=== PATIENT | female | born 1940 | race Caucasian/White ===

== ENCOUNTER 2016-05-07 14:43 | Emergency (ER) | payer MEDICARE ==
[2016-05-07 15:27] VITALS: BP 124/56
--- NOTE | 2016-05-07 15:55 | UC ---
Respiratory Complaint HPI - HPI Summary HPI Summary: cough and feeling crappy x 4 days. Feels like she has a cold and that she and her are passing it back and forth. States her cleaning lady brought her mother in law and that woman was sick too. Pt is a smoker. Had a flu shot. Has had pneumonia a few times in the past. - History of Current Complaint Chief Complaint: UCGeneralIllness Stated Complaint: COLD/ACHY ALL OVER Time Seen by Provider: 05/07/16 15:44 Hx Obtained From: Patient Onset/Duration: Gradual Onset, Lasting Days, Still Present Timing: Constant Severity Initially: Moderate Severity Currently: Moderate Pain Intensity: 10 - in her lower back, "sciatica, no different than usual" Pain Scale Used: 0-10 Numeric Character: Sputum Description: - yellow Aggravating Factors: Nothing Alleviating Factors: OTC Meds - cough drops Associated Signs And Symptoms: Positive: Wheezing, Dizziness, URI, Nasal Congestion, Sinus Discomfort. Negative: Fever, Chills, Pleuritic Chest Pain - Risk Factors Pulmonary Embolism Risk Factors: Negative Cardiac Risk Factors: Negative Pseudomonas Risk Factors: Chronic Lung Disease Tuberculosis Risk Factors: Negative - Allergies/Home Medications Allergies/Adverse Reactions: Allergies Allergy/AdvReac Type Severity Reaction Status Date / Time Cefaclor [From Ceclor] Allergy Rash Verified 05/07/16 15:27 Cephalexin [From Keflex] Allergy Unknown Verified 05/07/16 15:27 Reaction Details Cimetidine [From Tagamet HB] Allergy ITCHY Verified 05/07/16 15:27 RASH, N/V Erythromycin Allergy Rash Verified 05/07/16 15:27 Lansoprazole [From Prevacid] Allergy Unknown Verified 05/07/16 15:27 Reaction Details Morphine Allergy Unknown Verified 05/07/16 15:27 Reaction Details [place] Allergy WATERY Verified 05/07/16 15:27 EYES HIVES, SOB Prednisone Allergy Unknown Verified 05/07/16 15:27 Reaction Details Sulfa Drugs Allergy Rash Verified 05/07/16 15:27 Tetracycline Allergy Rash Verified 05/07/16 15:27 PMH/Surg Hx/FS Hx/Imm Hx Previously Healthy: No - sciatica Respiratory History Of: Reports: COPD Neurological History Of: Reports: Migraine - MANY YEARS AGO Psychological History Of: Reports: Anxiety - ON MEDS, Depression - ON MEDS Cancer History Of: Denies: Breast Cancer - Surgical History Surgical History: Yes Surgery Procedure, Year, and Place: OPEN BIOPSY RIGHT BREAST[place] [place];2003;02/2012 ALSO. HYSTERECTOMY, [facility] [place], . LEFT ELBOW, 2008, [facility] [place]. GALLBLADDER, , [facility] [place]. TUBAL LIGATION , [facility] [place]. R BREAST SX-LESION REMOVED--MAR 29, 2012. HEART CATH, , [facility] [place] - Family History Known Family History: Positive: Other - cancer - Social History Occupation: Retired Lives: With Family Alcohol Use: Rare Substance Use Type: None, Prescribed Smoking Status (MU): Heavy Every Day Tobacco Smoker Type: Cigarettes Amount Used/How Often: 1 PPD FOR ABOUT 45 YEARS Have You Smoked in the Last Year: Yes Review of Systems Constitutional: Fatigue ENT: Sore Throat, Nasal Discharge Respiratory: Cough Cardiovascular: Negative Gastrointestinal: Negative Motor: Weakness Neurovascular: Other Musculoskeletal: Arthralgia - sciatica Neurological: Headache All Other Systems Reviewed And Are Negative: Yes Physical Exam Triage Information Reviewed: Yes Appearance: No Pain Distress, Well-Nourished, Ill-Appearing, Other: - odor sim to cigarette smoke from patient; relates dizziness when she stands up. RN reported that pt "almost passed out" coming to triage room. Vital Signs: Initial Vital Signs Temp 97.3 F 05/07/16 15:23 Pulse 91 05/07/16 15:23 Resp 18 05/07/16 15:23 BP 124/56 05/07/16 15:23 Pulse Ox 95 05/07/16 15:23 Vital Signs Reviewed: Yes Eyes: Positive: Conjunctiva Clear ENT: Positive: Pharynx normal, TMs normal Neck: Positive: Supple, Nontender, No Lymphadenopathy Respiratory: Positive: No respiratory distress, No accessory muscle use, Decreased breath sounds, Wheezing - right upper lobe only Cardiovascular: Positive: RRR, No Murmur, Pulses Normal, Brisk Capillary Refill Abdomen Description: Positive: Nontender, Soft Musculoskeletal: Positive: Strength Intact, ROM Intact Neurological: Positive: Alert, Muscle Tone Normal Psychological Exam: Normal Skin Exam: Normal UC Diagnostic Evaluation - Laboratory O2 Sat by Pulse Oximetry: 95 Respiratory Course/Dx - Course Course Of Treatment: EKG SR nl AVIVCT, no acute changes, NONSTEMI, no change compared to 12/16/07. With pt's wheezing in one lobe of the lung and inability to stand or sit up without dizziness am concerned about pneumonia, dehydration, possible cardiac symptoms. Recommend transfer to ED, pt and [facility]. will drive pt. - Differential Dx/Diagnosis Differential Diagnosis/HQI/PQRI: Bronchitis, Exacerbation Of COPD, Influenza, Lower Resp Infection Provider Diagnoses: wheezing. vertigo - Physician Notification/Consults Time Discussed With Above Provider: 16:10 - Dr. Rodríguez, [facility] ED Instructed by Provider To: MD Will See In ED Discharge - Discharge Plan Condition: Stable Disposition: AGAINST MEDICAL ADVICE Discharge Disposition Comment: Pt will go by private car to [facility] with driving
== END 2016-05-07 16:20 | disposition left against medical advice (07) ==
LOC: UCCORT 14:43
DX: R06.2 Wheezing (principal); R42 Dizziness and giddiness; Z88.1 Allergy status to other antibiotic agents; Z88.5 Allergy status to narcotic agent; Z88.2 Allergy status to sulfonamides; Z88.8 Allergy status to other drugs, medicaments and biological substances; F17.210 Nicotine dependence, cigarettes, uncomplicated
CPT/HCPCS: 93005; 99212; G0463

== ENCOUNTER 2018-07-31 09:34 | Emergency (ER) | payer MEDICARE ==
[2018-07-31 11:03] VITALS: BP 151/64
--- NOTE | 2018-07-31 11:30 | UC ---
General HPI - HPI Summary HPI Summary: Here with her who has dementia, she has to take care of him. States she has been coughing with SOB, productive cough. Just finished a zpack a few days ago. No fever. +Congestion. +Seasonal allergies. Good PO. Some weight loss. No N/V/D. Blood pressure has been high, states her primary has been watching it. Her nerves are high because she has to take care of her . Is taking Albuterol. Refused oral prednisone because she states it makes her a 'bitch' when they tried starting her on it a with the zpack. Meds reviewed. SMokes more than a ppd. - History of Current Complaint Chief Complaint: UCGeneralIllness Stated Complaint: COLD SX'S Time Seen by Provider: 07/31/18 10:59 Pain Intensity: 5 - Allergy/Home Medications Allergies/Adverse Reactions: Allergies Allergy/AdvReac Type Severity Reaction Status Date / Time cefaclor [From Ceclor] Allergy Rash Verified 07/31/18 11:12 cephalexin [From Keflex] Allergy Unknown Verified 07/31/18 11:18 Reaction Details cimetidine [From Tagamet] Allergy Rash And Verified 07/31/18 11:18 Itching erythromycin base Allergy Rash Verified 07/31/18 11:18 lansoprazole [From Prevacid] Allergy Unknown Verified 07/31/18 11:18 Reaction Details morphine Allergy GI Upset Verified 07/31/18 11:18 MS Cefaclor [From Ceclor] Allergy Rash Verified 07/31/18 11:04 MS Cephalexin [From Keflex] Allergy Unknown Verified 07/31/18 11:04 Reaction Details MS Cimetidine Allergy ITCHY Verified 07/31/18 11:04 [From Tagamet HB] RASH, N/V pine nut Allergy See Comment Verified 07/31/18 11:12 prednisone Allergy Unknown Verified 07/31/18 11:18 Reaction Details Sulfa (Sulfonamide Allergy Rash Verified 07/31/18 11:18 Antibiotics) tetracycline Allergy Rash Verified 07/31/18 11:18 PMH/Surg Hx/FS Hx/Imm Hx Previously Healthy: No Respiratory History: COPD GI/ History: Gastroesophageal Reflux - Surgical History Surgical History: Yes Surgery Procedure, Year, and Place: [place] [place]SO. HYSTERECTOMY, [facility], 1990S. LEFT ELBOW, [place], [facility] [place]. GALL[place], , [facility] [place]. TUBAL [place]IGATION , [facility] [place]. R BREAST SX-LESION REMOVED--MAR 29, 2012. HEART CATH, , [facility] [place] - Family History Known Family History: Positive: Other - cancer - Social History Alcohol Use: Rare Substance Use Type: None Smoking Status (MU): Heavy Every Day Tobacco Smoker Type: Cigarettes Amount Used/How Often: 1 PPD FOR ABOUT 45 YEARS Have You Smoked in the Last Year: Yes Review of Systems All Other Systems Reviewed And Are Negative: Yes ENT: Positive: Sinus Congestion Respiratory: Positive: Shortness Of Breath, Cough Physical Exam Triage Information Reviewed: Yes Appearance: Well-Appearing, Other: - elderly frail Vital Signs: Initial Vital Signs Temp 98.2 F 07/31/18 10:55 Pulse 75 07/31/18 10:55 Resp 18 07/31/18 10:55 BP 151/64 07/31/18 10:55 Pulse Ox 97 07/31/18 10:55 ENT: Positive: Pharyngeal erythema, Nasal congestion Neck: Positive: Supple, Nontender Respiratory: Positive: Other: - b/l rhonchi with expiratory wheezing Cardiovascular: Positive: RRR, No Murmur Diagnostics - Radiology CXR Radiology Interpretation Completed By: Radiologist Summary of Radiographic Findings: Hyperinflation, consistent with COPD Course/Dx - Course Course Of Treatment: This is an 78 yr old smoker with COPD who presents with persistent cough - just completed zpack Assessment ALbuterol neb given CXR: COPD Patient agreeable to low dose prednisone - discussed taking it in the morning REcommend allergy medications as well thought patient states she does not have time for it Plan Prednisone 20 mg daily in AM x 5 days - take with food Continue Albuterol inhaler and symbicort as prescribed Tessalon capsules as needed for cough as directed Start Zyrtec daily and nasal spray flonase as directed REcommend follow up with your PCP regarding elevated blood pressure If symptoms persist or worsen, recommend follow up with your PCP or return to urgent care - Diagnoses Provider Diagnosis: COPD exacerbation, Seasonal allergies Discharge - Sign-Out/Discharge Documenting (check all that apply): Patient Departure All imaging exams completed and their final reports reviewed: Yes - Discharge Plan Condition: Fair Disposition: HOME Prescriptions: Benzonatate CAP* [Tessalon 100 MG CAP*] 100 mg PO TID PRN #30 cap PRN Reason: Cough Cetirizine* [ZyrTEC 10 MG TAB*] 10 mg PO DAILY #30 tab Fluticasone NASAL SPRAY 50MCG* [Flonase NASAL SPRAY 50MCG*] 2 spray BOTH NARES DAILY #1 btl predniSONE TAB* [Deltasone 20 MG TAB*] 20 mg PO DAILY #5 tab Patient Education Materials: COPD (Chronic Obstructive Pulmonary Disease) (ED) Referrals: Veto Garcia MD [Primary Care Provider] - Additional Instructions: Prednisone 20 mg daily in AM x 5 days - take with food Continue Albuterol inhaler and symbicort as prescribed Tessalon capsules as needed for cough as directed Start Zyrtec daily and nasal spray flonase as directed REcommend follow up with your PCP regarding elevated blood pressure If symptoms persist or worsen, recommend follow up with your PCP or return to urgent care - Billing Disposition and Condition Condition: FAIR Disposition: Home
[2018-07-31] MEDS: Albuterol 2.5 MG/3 ML NEB.SOL* (0.083%) INH ONE (11:45)
== END 2018-07-31 12:07 | disposition home or self-care (01) ==
LOC: UCCORT 09:34
DX: J44.1 Chronic obstructive pulmonary disease with (acute) exacerbation (principal); J30.2 Other seasonal allergic rhinitis; F17.210 Nicotine dependence, cigarettes, uncomplicated; Z88.1 Allergy status to other antibiotic agents; Z88.8 Allergy status to other drugs, medicaments and biological substances
CPT/HCPCS: 71046; 99212; G0463

== ENCOUNTER 2019-01-13 08:53 | Emergency (ER) | payer MEDICARE ==
--- OUTSIDE RECORDS SUMMARY | 2019-01-13 09:36 | XMS REPORT | Continuity of Care Document ---
:1940 External Reference #:[id number] Author Name Veto Garcia M.D. Address [address] [place] [id number] Care Team Providers Name Role Phone Maribel Whiteside MD - Surgery Care Team Information [facility] - Care Team Information Furniture Painter [phone] Gastroenterology Vesta Soares MD - Care Team Information Furniture Painter [phone] Ophthalmology Og Huggins MD - Internal Care Team Information Furniture Painter [phone] Medicine Problems Active Problems Provider Date Dysthymia [place] M.D. Onset: 12/31/2002 Tobacco user Song River M.D. Onset: 12/31/2002 Panic disorder without agoraphobia Song River M.D. Onset: 12/31/2002 Fibrocystic disease of breast [place] M.D. Onset: 11/23/2005 Chronic diastolic heart failure Song River M.D. Onset: 06/20/2006 Pure hypercholesterolemia Song [place] M.D. 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 Onset: 12/11/2014 Gastroesophageal reflux disease Song River M.D. Onset: 06/26/2016 Generalized anxiety disorder Veto Garcia M.D. Onset: 12/25/2017 Social History Type Date Description Comments Sex Unknown Tobacco Use Reviewed: 12/18/17 Current Cigarette Smoker started at age since 1 Pack Daily 20s off and on then and at age 28 constant use , slightly <1 ppd Cigarette Use 11/14/2016 Pack Years - 45 45-50 Smoking Status Reviewed: 07/26/18 Current Cigarette Smoker started at age since 1 Pack Daily 20s off and on then and at age 28 constant use , slightly <1 ppd ETOH Use Denies alcohol use Recreational Drug Use Denies Drug Use Tobacco Use Start: Unknown Patient is a current smoker, smokes every day Tobacco Use Start: Unknown Heavy tobacco smoker (more than 10 cigarettes/day) Allergies, Adverse Reactions, Alerts Active Allergies Reaction Severity Comments Date Tagamet 05/07/2003 Prevacid pt unsure of reaction 05/07/2003 Antihistamine 05/07/2003 Keflex 05/07/2003 Prednisone 05/07/2003 Sulfa 05/07/2003 Morphine Nausea and Vomiting, 06/05/2014 vomitting Medications Active Medications SIG Qnty Indications Ordering Provider Date Venlafaxine HCL ER take 1 capsule by 90caps F43.23 Veto Garcia, 2017 75mg mouth once daily M.D. Caps ER 24HR F43.21 F41.1 Ventolin HFA 2 puffs 18gm J44.9 Veto Garcia, 08/19/2016 108(90Base) by 1-2 minutes M.D. mcg/Act Aerosol before gym Diazepam 1 tab by mouth 120tabs F41.1 Veto Garcia, 12/11/2013 5mg Tablets every 4-6h as M.D. needed for anxiety Tylenol give 2 tablets po Unknown 08/24/2013 325mg Tablets [id number] prn for pain Pepcid 1 po bid as needed otc K21.9 Unknown 08/05/2008 20mg Tablets Vitamin D 1 PO qd 90caps M85.80 Song Frazier 03/04/2008 1000Unit [place] Capsules M81.0 Asa (Baby) 1 PO qd 786.50 Song River M.D. 06/11/2006 81mg History Medications Azithromycin 2 tabs day one and 6tabs J20.9 Veto Garcia, 07/26/2018 - 250mg 1 tab days 2-5 M.D. 07/31/2018 Tablets Spiriva Respimat 2 inhalation 1 4gm J44.9 Veto Garcia, 07/26/2018 - time day for copd, [place] 11/03/2018 1.25mcg/Act Aerosol sample PT For Low Back Pain please evaluate M54.5 Veto Garcia, 07/15/2018 - and treatCezar 09/22/2018 modalities as needed, instruct in hep Medications Administered in Office Medication SIG Qnty Indications Ordering Provider Date injection, kenalog, 10 mg [place] M.D. 12/31/2014 Injection injection, kenalog, 10 mg [place] M.D. 08/08/2007 Injection injection, kenalog, 10 mg [place] M.D. 05/23/2007 Injection injection, meseretalog, 10 mg [place] M.D. 01/01/2007 Injection Immunizations CPT Code Status Date Vaccine Reaction Lot # [id number] Given 12/25/2017 Influenza Vaccine, [id number] Inactivated, Subunit, Adjuvanted, For Intrmusc 72779 Given 12/05/2016 Influenza Vaccine Split [id number] Virus Preservative Free Im Use 51760 Given 12/31/2015 Influenza Vaccine Split Virus Preservative Free Im Use 41598 Given 12/18/2014 Influenza Vaccine Split [id number] Virus Preservative Free Im Use 49264 Given 02/05/2014 Adacel or Boostrix, TDaP [id number] 50262 Given 01/11/2014 Flu, Split Virus 3Yrs 93852 Given 12/26/2012 Flu, Split Virus 3Yrs [id number] 81546 Given 12/07/2011 Flu, Split Virus 3Yrs [id number] 99160 Given 11/24/2010 Flu, Split Virus 3Yrs [id number] 63037 Given 12/29/2009 Flu, Split Virus 3Yrs [id number] 05523 Given 05/13/2008 Td Immunization [id number] 94418 Given 01/04/2008 Flu, Split Virus 3Yrs [id number] 57371 Given 12/22/2006 Flu, Split Virus 3Yrs [id number] 95214 Given 01/08/2006 Flu, Split Virus 3Yrs 60311 Given 12/12/2004 Flu, Split Virus 3Yrs 07434 Given 12/19/2003 Flu, Split Virus 3Yrs 68260 Given 12/31/2002 Flu, Split Virus 3Yrs 42437 Given 03/19/1998 Td Immunization 09120 Given 03/19/1991 Pneumococcal Immunization could not walk for 3 d wo other sxs; did not see doctor at that time 91053 Refused 11/16/2017 Shingrix Zoster (Shingles) Vaccine (HZV) Recomb,Subnit,Adjuvanted 27644 Refused 09/24/2014 Prevnar 13 66663 Refused 10/11/2012 Pneumococcal Immunization 02905 Refused 04/07/2005 Pneumococcal Immunization Vital Signs Date Vital Result Comment 12/27/2018 9:51am BP Systolic 134 mmHg BP Diastolic 80 mmHg Heart Rate 84 /min reg Respiratory Rate 16 /min not laboured Height 62.25 inches 5'2.25" Weight 134.00 lb BMI (Body Mass Index) 24.3 kg/m2 11/04/2018 9:09am BP Systolic 134 mmHg BP Diastolic 78 mmHg Results Test Date Facility Test Result H/L Range Note Laboratory test 11/04/2018 [facility] SEE RESULT 1, 2 finding [phone] Pathology BELOW 1 [id number] 2 SEE RESULT BELOW Name: DALE MERAZ : [address]: Veto Garcia MD Acct: [id number] Unit: [id number] AGE: 78 Location: [facility] Re11/04/18 SEX: F Status: REG REF SPEC: [id number] MIKEL: 11/04/18-[address] [facility] [address]: Veto Garcia MD REQ: [id number] RECD: 11/04/18 STATUS: SOUT _ ORDERED: LEVEL 4 COMMENTS: [id number] FINAL DIAGNOSIS Left upper forearm, biopsy: -- 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 CLINICAL HISTORY Complaining of bumps coming and going over period of months, one on lower forearm continues for possibly several months PRE-OPERATIVE DIAGNOSIS Approximately 3 FBs distal to lateral malleolus approximately 1 cm (measured ) rounded, mobile superficial nodule with overlying purple coloration, localized swelling, mass and lump left upper limb GROSS DESCRIPTION The specimen is received in formalin labeled, Left Upper Forearm, and consists of a 1.1 x 1.0 x 0.4 cm aggregate of heard-yellow irregular to ovoid rubbery soft tissue fragments and fat, the largest of which measures up to 1.2 cm. The cut surface is glistening yellow to focally hemorrhagic. The largest fragment is inked, serially sectioned and the specimen is entirely submitted in one cassette. Signed by and Reported on: Carmelina Ng MD 11/06/18 1347 END OF REPORT DEPARTMENT OF PATHOLOGY, [address] [place] [address] Thor Castaneda M.D. Director [facility] # [id number] Procedures Date Code Description Status 11/04/2018 72434 Excision Tumor Upper Arm/Elbow Subcutaneous Completed 09/23/2018 70268 Spirometry Completed 09/13/2018 [id number] Mammogram Completed 12/25/2017 [id number] Bone Mineral Density Test Completed 10/25/2015 [id number] Colonoscopy Completed Medical Devices Description No Information Available Encounters Type Date Location Provider Dx Diagnosis Office Visit 11/04/2018 Main Office Veto Garcia, R22.32 Localized swelling, 9:15a M.D. mass and lump, left upper limb J44.9 Chronic obstructive pulmonary disease, unspecified F17.210 Nicotine dependence, cigarettes, uncomplicated D17.22 Benign lipomatous neoplasm of skin, subcu of left arm Office Visit 09/23/2018 9:30a Main Office Veto Garcia, R22.32 Localized M.D. swelling, mass and lump, left upper limb J44.9 Chronic obstructive pulmonary disease, unspecified F17.210 Nicotine dependence, cigarettes, uncomplicated Office Visit 07/26/2018 10:20a Main Office Mariaelena Mendieta J20.9 Acute bronchitis, P.A. unspecified J44.9 Chronic obstructive pulmonary disease, unspecified Office Visit 07/15/2018 3:45p Main Office Veto Garcia M.D. M54.5 Low back pain Assessments Date Code Description Provider 12/27/2018 Z00.00 Encounter for general adult medical Veto Garcia M.D. examination without abnormal findings 12/27/2018 Z12.39 Encounter for other screening for malignant Veto Garcia M.D. neoplasm of breast 12/27/2018 Z23 Encounter for immunization Veto Garcia M.D. 12/27/2018 F41.1 Generalized anxiety disorder Veto Garcia M.D. 12/27/2018 J44.9 Chronic obstructive pulmonary disease, Veto Garcia M.D. unspecified 12/27/2018 F17.210 Nicotine dependence, cigarettes, Veto Garcia M.D. uncomplicated 12/27/2018 K21.9 Gastro-esophageal reflux disease without Veto Garcia M.D. esophagitis 12/27/2018 Z68.24 Body mass index (BMI) 24.0-24.9, adult Veto Garcia M.D. 11/15/2018 Z48.02 Encounter for removal of sutures Nurse's Schedule 11/04/2018 R22.32 Localized swelling, mass and lump, left Veto Garcia M.D. upper limb 11/04/2018 J44.9 Chronic obstructive pulmonary disease, Veto Garcia M.D. unspecified 11/04/2018 F17.210 Nicotine dependence, cigarettes, Veto Garcia M.D. uncomplicated 11/04/2018 D17.22 Benign lipomatous neoplasm of skin and Veto Garcia M.D. subcutaneous tissue of left arm 09/23/2018 R22.32 Localized swelling, mass and lump, left Veto Garcia M.D. upper limb 09/23/2018 J44.9 Chronic obstructive pulmonary disease, Veto Garcia M.D. unspecified 09/23/2018 F17.210 Nicotine dependence, cigarettes, Veto Garcia M.D. uncomplicated 07/26/2018 J20.9 Acute bronchitis, unspecified Mariaelena Mendieta, PCharlette 07/26/2018 J44.9 Chronic obstructive pulmonary disease, Mariaelena Mendieta, P.ATrudy unspecified 07/15/2018 M54.5 Low back pain Veto Garcia M.D. Plan of Treatment Future Appointment(s):01/04/2019 9:15 am - Nurse's Schedule at Main [id number] - Mariaelena Mendieta P.ATrudyJ20.9 Acute bronchitis, unspecifiedNew Medication: Azithromycin 250 mg - 2 tabs day one and 1 tab days 2-5Follow up:return if not [id number] Chronic obstructive pulmonary disease, unspecifiedNew Medication: Spiriva Respimat 1.25 mcg/Act - 2 inhalation 1 time day for copd, sampleFollow up:we will call to see how workig in 5 days Functional Status Description No Information Available Mental Status Description No Information Available Referrals Description No Information Available
[2019-01-13 10:07] VITALS: BP 106/53
[2019-01-13] MEDS ORDERED: Albuterol/Ipratropium NEB.SOL* Albuterol 2.5 MG/Ipratropium 0.5 MG 3 ML INH ONE (10:20)
--- NOTE | 2019-01-13 10:39 | ED ---
Respiratory - HPI Summary HPI Summary: 78 yr old with the complaint of SOB, Coughing. Onset about a week ago. She first had runny nose, post nasal drip, and then coughing a lot. She states she has a history of COPD. She denies chest pain. Her cough is productive of yellow sputum. No other complaints. - History of Current Complaint Chief Complaint: UCRespiratory Stated Complaint: COUGH Time Seen by Provider: 01/13/19 10:15 Pain Intensity: 3 - Allergy/Home Medications Allergies/Adverse Reactions: Allergies Allergy/AdvReac Type Severity Reaction Status Date / Time cefaclor [From Ceclor] Allergy Rash Verified 07/31/18 11:12 cephalexin [From Keflex] Allergy Unknown Verified 07/31/18 11:18 Reaction Details cimetidine [From Tagamet] Allergy Rash And Verified 01/13/19 09:58 Itching erythromycin base Allergy Rash Verified 01/13/19 09:58 lansoprazole [From Prevacid] Allergy Unknown Verified 01/13/19 09:58 Reaction Details morphine Allergy GI Upset Verified 01/13/19 09:58 MS Cefaclor [From Ceclor] Allergy Rash Verified 01/13/19 09:58 MS Cephalexin [From Keflex] Allergy Unknown Verified 01/13/19 09:58 Reaction Details MS Cimetidine Allergy ITCHY Verified 01/13/19 09:58 [From Tagamet HB] RASH, N/V pine nut Allergy See Comment Verified 01/13/19 09:58 prednisone Allergy Unknown Verified 01/13/19 09:58 Reaction Details Sulfa (Sulfonamide Allergy Rash Verified 01/13/19 09:58 Antibiotics) tetracycline Allergy Rash Verified 07/31/18 11:18 Home Medications: Home Medications Albuterol HFA INHALER* [Ventolin HFA Inhaler*] 2 puff INH Q4H PRN 01/13/19 [ History Confirmed 01/13/19] PMH/Surg Hx/FS Hx/Imm Hx Endocrine/Hematology History: Denies: Hx Diabetes, Hx Thyroid Disease Cardiovascular History: Reports: Other Cardiovascular Problems/Disorders - LEAKING AORTIC VALVE FOR MANY YEARS Denies: Hx Hypertension Respiratory History: Reports: Hx Chronic Obstructive Pulmonary Disease (COPD) Denies: Hx Asthma GI History: Reports: Hx Gastroesophageal Reflux Disease Denies: Hx Ulcer History: Denies: Other Problems/Disorders Musculoskeletal History: Reports: 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 HYSTERECTOMY, [facility] [place], . LEFT ELBOW, 2008, [facility] [place]. GALLBLADDER, , [facility] [place]. TUBAL LIGATION , [facility] [place]. R BREAST SX-LESION REMOVED--MAR 29, 2012. HEART CATH, , [facility] [place] Hx Anesthesia Reactions: No Infectious Disease History: Yes Infectious Disease History: Reports: Hx Shingles Denies: Hx Hepatitis, Hx Human Immunodeficiency Virus (HIV), Traveled Outside the [place] in Last 30 Days - Family History Known Family History: Positive: Other - cancer - Social History Occupation: Retired Alcohol Use: Rare Substance Use Type: Reports: None Smoking Status (MU): Heavy Every Day Tobacco Smoker Type: Cigarettes Amount Used/How Often: 1 PPD FOR ABOUT 45 YEARS Have You Smoked in the Last Year: Yes Review of Systems Constitutional: Negative Positive: Shortness Of Breath, Cough All Other Systems Reviewed And Are Negative: Yes Physical Exam Triage Information Reviewed: Yes Vital Signs On Initial Exam: Initial Vitals Temp Pulse Resp BP Pulse Ox 97 F 88 20 106/53 94 01/13/19 10:02 01/13/19 10:02 01/13/19 10:02 01/13/19 10:02 01/13/19 10:02 Vital Signs Reviewed: Yes Appearance: Positive: Well-Appearing, No Pain Distress Skin: Positive: Warm, Skin Color Reflects Adequate Perfusion Head/Face: Positive: Normal Head/Face Inspection Eyes: Positive: EOMI ENT: Positive: Pharyngeal erythema, Nasal congestion, Nasal drainage, TMs normal Respiratory/Lung Sounds: Positive: Wheezes - bilateral in bases Cardiovascular: Positive: RRR. Negative: Murmur Abdomen Description: Positive: Nontender Musculoskeletal: Positive: Strength/ROM Intact Neurological: Positive: Sensory/Motor Intact, Alert, Oriented to Person Place, Time, CN Intact II-III Psychiatric: Positive: Normal Diagnostics - Vital Signs Vital Signs Temp Pulse Resp BP Pulse Ox 01/13/19 10:02 97 F 88 20 106/53 94 - Laboratory Lab Statement: Any lab studies that have been ordered have been reviewed, and results considered in the medical decision making process. - Radiology chest pa lat Radiology Interpretation Completed By: Radiologist - nad Re-Evaluation - Re-Evaluation First Eval Re-Evaluation Time: 11:13 Change: Improved Comment: Lungs are CTA and she is comfortable. Disposition - Course Course Of Treatment: 78 yr old with URI and COPD. She states she can take no steroids. She is comfortable. DC home. FU with PMD. She has nebs at home. - Diagnoses Provider Diagnoses: COPD with exacerbation Discharge ED - Sign-Out/Discharge Documenting (check all that apply): Patient Departure All imaging exams completed and their final reports reviewed: Yes - Discharge Plan Condition: Good Disposition: HOME Patient Education Materials: COPD (Chronic Obstructive Pulmonary Disease) (ED) Referrals: Veto Garcia MD [Primary Care Provider] - 2 Days - Billing Disposition and Condition Condition: GOOD Disposition: Home
== END 2019-01-13 11:20 | disposition home or self-care (01) ==
LOC: UCCORT 08:53
DX: J44.1 Chronic obstructive pulmonary disease with (acute) exacerbation (principal); F17.210 Nicotine dependence, cigarettes, uncomplicated; Z88.2 Allergy status to sulfonamides; Z88.1 Allergy status to other antibiotic agents; Z88.8 Allergy status to other drugs, medicaments and biological substances; Z88.5 Allergy status to narcotic agent; Z91.018 Allergy to other foods
CPT/HCPCS: 71046; 99212; A9270-GY; G0463